=== PATIENT | male | born 1985 | race Caucasian/White ===

== ENCOUNTER 2024-06-09 19:49 | Emergency (ER) | payer OTHER, SELFPAY ==
[2024-06-09 19:54] VITALS: BP 146/84; PULSE 74; RESP 16; TEMP 37.1; O2SAT 98
--- NOTE | 2024-06-09 19:59 | ED.GENADUL_ITS ---
Discharge Plan Disposition Patient Disposition: Home Condition: Good Discharge Details Clinical Impression: Dental infection Primary Care Provider: None,None ED Provider: Mehdi Philip and New Rx's Prescriptions: New amoxicillin 500 mg capsule 500 mg PO TID Qty: 21 0RF Discharge Instructions Instructions: Tooth Abscess ED Additional Instructions: You were seen in the ED for dental pain and facial swelling consistent with dental infection. You have been started on antibiotic which you will take 3 times a day until prescription has finished. Alternate acetaminophen with ibuprofen every 4 hours for pain. Ice on and off to side of face will help with pain and swelling. Contact a dentist back home for follow-up after the new year. Return to ED for any worsening facial pain or swelling, difficulty breathing, inability to swallow. Discharge Data Discharge Date/Time-TO BE ENTERED AT DEPARTURE: 06/09/24 22:39 HPI General Mode of arrival: ambulatory . Date/Time Provider Initiated Documentation: 06/09/24 19:59 . Limitations to Documentation: no limitations . Information obtained by: patient and RN notes reviewed . HPI Narrative: Patient presenting to ED with right-sided facial pain and swelling. Patient has noticed intermittent toothache over the last few weeks. Patient waiting for dental insurance to become active after the new year. Visiting family here in [place] where he used to live but currently resides in [place]. Over the last few days has noticed increased pain and in the last 24 hours some swelling to the face as well as radiation of the pain up towards the ear and forehead area. There is no difficulty breathing. There is no problem swallowing. There is been no fever or redness. Related Data Home Medications ?Medication ?Instructions ?Recorded ?Confirmed amoxicillin 500 mg capsule 500 mg PO TID #21 caps 06/09/24 06/09/24 Previous Rx's ?Medication ?Instructions ?Recorded amoxicillin 500 mg capsule 500 mg PO TID #21 caps 06/09/24 Allergies Allergy/AdvReac Type Severity Reaction Status Date / Time No Known Allergies Allergy Unverified 06/09/24 22:15 General Stated Complaint: DentalOral MIRIAM: 4 Review of Systems Narrative: per HPI Exam Narrative Exam Narrative: Const: NAD. VS per triage. HEENT: NC/AT. Some fullness and swelling to the right buccal area without erythema or warmth. Back two lower molars with obvious cavity present, percussion tenderness. No gingival abscess. Neck: Supple. Trachea midline. No salivary gland swelling or tenderness. No adenopathy. Lungs: Normal respiratory effort. Neuro: A+O x 3. Normal speech, mentation, gait. Cranial nerves II - XII grossly intact. No gross motor or sensory deficit. Course Vital Signs Vital signs: Vital Signs Temperature 98.8 F 06/09/24 19:54 Pulse 74 06/09/24 19:54 Respiratory Rate 16 06/09/24 19:54 Blood Pressure 146/84 H 06/09/24 19:54 Pulse Oximetry 98 06/09/24 19:54 Temperature 98.8 F 06/09/24 19:54 Pulse 74 06/09/24 19:54 Respiratory Rate 16 06/09/24 19:54 Blood Pressure 146/84 H 06/09/24 19:54 Pulse Oximetry 98 06/09/24 19:54 Pain Level 8 06/09/24 19:54 Medical Decision Making Patient presenting with facial swelling and pain. Patient with evidence of dental infection related to lower molars with large cavities present. Patient otherwise healthy with no allergies to medications. Will be started on amoxicillin. Recommend alternating acetaminophen with ibuprofen for pain. Should contact dentist back in [place] for follow-up after the new year. Return precautions provided. PFSH All Active Problems Episode of shaking (Acute) Dental infection (Acute) Medical History No significant past medical history Surgical History No significant past surgical history Social History Smoking/Tobacco Use Status: Never Smoking risk assessment performed?: Yes Alcohol Intake: current Alcohol Intake frequency: a few times a month Drug use: Never Substance use type: does not use Do you feel safe at home: Yes Do you feel safe in your relationship?: Yes
[2024-06-09] MEDS: Amoxicillin 500 MG CAP PO (20:16)
== END 2024-06-09 22:39 | disposition home or self-care (01) ==
PROVIDERS: Emergency Provider Emergency Medicine
DX: K04.7 Periapical abscess without sinus
CPT/HCPCS: 99283

== ENCOUNTER 2024-06-09 22:07 | Emergency (ER) | payer OTHER, SELFPAY ==
[2024-06-09 22:10] VITALS: BP 194/144; PULSE 68; RESP 16; TEMP 36.4; O2SAT 98
--- NOTE | 2024-06-09 22:19 | ED.GENADUL_ITS ---
Discharge Plan Disposition Patient Disposition: Home Condition: Good Discharge Details Clinical Impression: Episode of shaking Primary Care Provider: None,None ED Provider: Mehdi Philips and New Rx's Prescriptions: Continued amoxicillin 500 mg capsule 500 mg PO TID Qty: 21 0RF Discharge Instructions Additional Instructions: You were seen in the ED for episode of shaking. No evidence of allergic reaction to the amoxicillin. Unlikely to be an adverse reaction to the amoxicillin as this is not typical. However, if you continue to have similar episodes after the next couple of doses of antibiotic would follow-up at an urgent care to change the antibiotic. It may have been anxiety reaction, not related to medication. Unlikely to be related to infection given lack of fever or tachycardia. Return to ED for chest pain, syncope, shortness of breath, other concerns. Discharge Data Discharge Date/Time-TO BE ENTERED AT DEPARTURE: 06/09/24 22:39 HPI General Mode of arrival: ambulatory . Date/Time Provider Initiated Documentation: 06/09/24 22:19 . Limitations to Documentation: no limitations . Information obtained by: patient and RN notes reviewed . HPI Narrative: Patient returns to ED with complaint of shaking episode at home. Patient was just seen by me couple hours ago and prescribed amoxicillin for dental infection. Was given first dose here. Reports that once at home began to feel out of it and began shaking and trembling all over. Denies any type of loss of consciousness. Denies any fever and does not feel that it was similar to previous chills. Denies any pruritus, hives, throat swelling, chest pain, shortness of breath, syncope. Denies any abdominal pain, vomiting or diarrhea. Related Data Home Medications ?Medication ?Instructions ?Recorded ?Confirmed amoxicillin 500 mg capsule 500 mg PO TID #21 caps 06/09/24 06/09/24 Previous Rx's ?Medication ?Instructions ?Recorded amoxicillin 500 mg capsule 500 mg PO TID #21 caps 06/09/24 Allergies Allergy/AdvReac Type Severity Reaction Status Date / Time No Known Allergies Allergy Unverified 06/09/24 22:15 General Stated Complaint: Recheck MIRIAM: 5 Review of Systems Narrative: Per HPI Exam Narrative Exam Narrative: Const: NAD. VS per triage. Neck: Supple. Trachea midline. Lungs: Normal respiratory effort. Lungs are clear. Cor: RRR without murmur. Good radial pulses. Neuro: A+O x 3. Normal speech, mentation, gait. Cranial nerves II - XII grossly intact. No gross motor or sensory deficit. Course Vital Signs Vital signs: Vital Signs Temperature 97.5 F L 06/09/24 22:10 Pulse 68 06/09/24 22:10 Respiratory Rate 16 06/09/24 22:10 Blood Pressure 194/144 H 06/09/24 22:10 Pulse Oximetry 98 06/09/24 22:10 Temperature 97.5 F L 06/09/24 22:10 Pulse 68 06/09/24 22:10 Respiratory Rate 16 06/09/24 22:10 Blood Pressure 194/144 H 06/09/24 22:10 Blood Pressure Position Sitting 06/09/24 22:10 Pulse Oximetry 98 06/09/24 22:10 Oxygen Delivery Method Room Air 06/09/24 22:10 Oxygen Flow Rate 0 06/09/24 22:10 Pain Level 8 06/09/24 22:10 Medical Decision Making Patient returning to ED with episode of shaking at home and feeling out of it. He had received amoxicillin orally while here couple of hours ago for dental infection. There is no evidence of an allergic reaction. Highly unlikely that this is an adverse reaction to amoxicillin though cannot completely rule out. By history not concerned for seizure as there was no change in mental status. Suspect more related to acute anxiety. Blood pressure is elevated here. Repeat blood pressure remains elevated. Does not have history of hypertension. Patient reassured. Will continue amoxicillin for now. If continues to have similar episodes shortly after taking amoxicillin will need antibiotic changed. Will need follow-up with PCP for elevated blood pressure readings as well as dentist as previously discussed. Return precautions provided. Quality:SDOH Health Related Social Needs: No Data to Display PFSH All Active Problems Episode of shaking (Acute) Dental infection (Acute) Medical History No significant past medical history Surgical History No significant past surgical history Social History Smoking/Tobacco Use Status: Never Smoking risk assessment performed?: Yes Alcohol Intake: current Alcohol Intake frequency: a few times a month Drug use: Never Substance use type: does not use Do you feel safe at home: Yes Do you feel safe in your relationship?: Yes
[2024-06-09 22:39] VITALS: BP 163/119; PULSE 65; RESP 16; O2SAT 98
== END 2024-06-09 22:39 | disposition home or self-care (01) ==
PROVIDERS: Emergency Provider Emergency Medicine
DX: R25.1 Tremor, unspecified (principal)
CPT/HCPCS: 99283